=== PATIENT | female | born 1965 | race Caucasian/White ===

== ENCOUNTER → 2020-11-26 | Outpatient (CLI) | payer OTHER | LOC: ZCOL.LAB 12:25 | DX: Z20.822 Contact with and (suspected) exposure to COVID-19 (principal) ==

== ENCOUNTER → 2021-02-01 | Outpatient (CLI) | payer SELFPAY | LOC: ZCOL.LAB 09:26 | DX: Z20.822 Contact with and (suspected) exposure to COVID-19 (principal) ==

== ENCOUNTER 2021-09-24 12:50 | Day surgery (SDC) | payer BC ==
[~2021-09-24] VITALS: Ht 172.7 cm; Wt 75.6 kg
[2021-09-24] MEDS ORDERED: IRON PO (13:43)
[2021-09-24] MEDS ORDERED: COMPLETE MULTI1 TAB PO (13:44)
[2021-09-24] MEDS ORDERED: ASPIRIN E.C. 8181 MG PO (13:44)
[2021-09-24] MEDS ORDERED: K-DUR20 MEQ PO (13:46)
[2021-09-24] MEDS ORDERED: PROTONIX 40MG T40 MG PO (13:46)
[2021-09-24] MEDS ORDERED: DEMADEX100 MG PO (13:46)
[2021-09-24] MEDS ORDERED: JARDIANCE10 PO (13:47)
[2021-09-24] MEDS ORDERED: TIROSINT112 MC1 PO (13:48)
[2021-09-24] MEDS ORDERED: GLUCOPHAGE XR500 M1 PO (13:48)
[2021-09-24] MEDS ORDERED: COUMADIN 5MG5 MG/TAB PO (13:49)
[2021-09-24] MEDS ORDERED: ZYLOPRIM 300MG300 MG PO (13:49)
[2021-09-24] MEDS ORDERED: ZEBETA 5MG5 MG PO (13:49)
[2021-09-24] MEDS ORDERED: COLCRYS0.6 MG PO (13:50)
[2021-09-24] MEDS ORDERED: ALDACTONE50 MG PO (13:50)
[2021-09-24] MEDS ORDERED: ZOLOFT 100MG100 MG PO (13:50)
[2021-09-24] MEDS ORDERED: KLONOPIN WAFERS2 MG PO (13:51)
[2021-09-24] MEDS ORDERED: LIPITOR 40MG TA40 MG PO (13:51)
[2021-09-24 14:16] VITALS: BP 118/68; PULSE 97; TEMP 98.7
[2021-09-24 15:15] VITALS: BP 105/67; PULSE 91; TEMP 97.8
--- NOTE | 2021-09-24 15:15 | NUR ---
Pt to [facility] 3 via cart from ENDO. Pt drowsy, but awake. Denies pain or nausea. Muffin and soda given per pt request. in room. VSS. Will continue to monitor.
[2021-09-24 15:30] VITALS: BP 105/75; PULSE 89
--- NOTE | 2021-09-24 15:30 | NUR ---
Pt continues to rest. Denies needs. Call light within reach.
[2021-09-24 15:45] VITALS: BP 139/75; PULSE 88
--- NOTE | 2021-09-24 15:45 | NUR ---
Pt continues to rest. Denies needs. Call light within reach.
[2021-09-24 16:00] VITALS: BP 138/54; PULSE 88
--- NOTE | 2021-09-24 16:00 | NUR ---
into speak with pt.
--- NOTE | 2021-09-24 16:45 | NUR ---
Discharge instructions reviewed. Pt voices understanding. IV site discontinued with all parts intact. Pt escorted to private car via wheel chair. Pt accompanied home by her .
== END 2021-09-24 16:45 | disposition home or self-care (01) ==
LOC: SDCO 12:50
DX: D12.0 Benign neoplasm of cecum (principal); D50.0 Iron deficiency anemia secondary to blood loss (chronic); I10 Essential (primary) hypertension; I25.10 Atherosclerotic heart disease of native coronary artery without angina pectoris; E78.5 Hyperlipidemia, unspecified; G47.33 Obstructive sleep apnea (adult) (pediatric); F41.9 Anxiety disorder, unspecified; F32.A Depression, unspecified; E07.9 Disorder of thyroid, unspecified; E03.9 Hypothyroidism, unspecified; Z85.9 Personal history of malignant neoplasm, unspecified; Z99.89 Dependence on other enabling machines and devices; Z79.890 Hormone replacement therapy; Z79.899 Other long term (current) drug therapy; Z79.01 Long term (current) use of anticoagulants; Z98.890 Other specified postprocedural states; Z79.82 Long term (current) use of aspirin
CPT/HCPCS: J2704; J7120